=== PATIENT | female | born 1990 | race Caucasian/White ===

== ENCOUNTER 2017-05-22 09:38 | Observation (INO) | payer BC, OTHER ==
[2017-05-22] MEDS ORDERED: SODIUM CHLORIDE 0.9% 1,000 ML IV STA (10:36)
[2017-05-22] MEDS ORDERED: RX INFO: IV CONTRAST WAS GIVEN 1 EACH MISC MISCELLANE PRN (10:36)
--- NOTE | 2017-05-22 10:36 | ED ---
Abdominal Pain HPI - General Source: patient Mode of arrival: wheelchair Limitations: no limitations <Richie Hua - Last Filed: 05/22/17 11:43> <Omega Boss - Last Filed: 05/22/17 11:51> - General Chief Complaint: Abdominal Pain Stated Complaint: Abdominal pain lower right Time Seen by Provider: 05/22/17 10:09 - History of Present Illness Initial Comments: This is a 26-year-old female who presents with abdominal pain which began yesterday evening around 8 PM. The patient states the pain initially was localized to the umbilical region and she began vomiting shortly after the pain onset. The pain is now localized more on the right lower abdomen and it is constant. The patient has had a bowel movement with formed stool after the onset of pain. She states she is very uncomfortable but bending her knees helps minimize the pain. She denies blood in the urine and stool. (Richie Hua) - Related Data Home Medications Medication Instructions Recorded Confirmed Vestura 1 tab PO HS 06/02/14 05/22/17 Allergies Allergy/AdvReac Type Severity Reaction Status Date / Time No Known Allergies Allergy Verified 05/22/17 10:09 Review of Systems ROS Other: All systems not noted in ROS Statement are negative. <Richie Hua - Last Filed: 05/22/17 11:43> ROS Other: All systems not noted in ROS Statement are negative. <Omega Boss - Last Filed: 05/22/17 11:51> ROS Statement: Those systems with pertinent positive or pertinent negative responses have been documented in the HPI. Past Medical History Past Medical History: GI Bleed, Skin Disorder Additional Past Medical History / Comment(s): BLOOD IN STOOL. ATOPIC ECZEMA, UNDER CONTROL. History of Any Multi-Drug Resistant Organisms: None Reported Past Surgical History: No Surgical Hx Reported Additional Past Anesthesia/Blood Transfusion Reaction / Comment(s): NO PREV ANESTHESIA EXCEPT LOCAL, W/ NO PROB Smoking Status: Never smoker <Richie Hua - Last Filed: 05/22/17 11:43> General Exam Limitations: no limitations General appearance: alert, in no apparent distress Eye exam: Present: normal appearance, PERRL, EOMI. Absent: scleral icterus, conjunctival injection, periorbital swelling Respiratory exam: Present: normal lung sounds bilaterally. Absent: respiratory distress, wheezes, rales, rhonchi, stridor Cardiovascular Exam: Present: regular rate GI/Abdominal exam: Present: soft, tenderness, guarding, rebound, normal bowel sounds. Absent: organomegaly Neurological exam: Present: alert, oriented X3, CN II-XII intact Psychiatric exam: Present: normal affect, normal mood Skin exam: Present: warm, dry, intact, normal color. Absent: rash <Richie Hua - Last Filed: 05/22/17 11:43> Course <Richie Hua - Last Filed: 05/22/17 11:43> <Omega Boss - Last Filed: 05/22/17 11:51> Vital Signs 05/22/17 05/22/17 09:53 11:40 Temperature 97.9 F 98.8 F Pulse Rate 73 75 Respiratory 18 18 Rate Blood Pressure 120/64 112/58 O2 Sat by Pulse 98 100 Oximetry - Reevaluation(s) Reevaluation #1: 05/22/17 11:50 PA supervision: I did personally do a [id number] evaluation the patient. He does present with classic symptoms and signs of appendicitis. The exception of this is a fever or white count or absent. She has demonstrate right lower quadrant tenderness. Does demonstrate a Rovsing sign. CAT scan does show evidence of an inflamed appendix. I did discuss the case with Dr. Guardado. He will write initial orders. She is to remain nothing by mouth. (Omega Boss) Medical Decision Making - Lab Data Result diagrams: 05/22/17 10:04 05/22/17 10:04 <Richie Hua - Last Filed: 05/22/17 11:43> - Lab Data Result diagrams: 05/22/17 10:04 05/22/17 10:04 <Omega Boss - Last Filed: 05/22/17 11:51> - Lab Data Lab Results 05/22/17 05/22/17 05/22/17 Range/Units 10:04 10:04 10:04 WBC 7.7 (3.8-10.6) k/uL RBC 4.62 (3.80-5.40) m/uL Hgb 13.9 (11.4-16.0) gm/dL Hct 41.8 (34.0-46.0) % MCV 90.4 (80.0-100.0) fL MCH 30.1 (25.0-35.0) pg MCHC 33.3 (31.0-37.0) g/dL RDW 12.3 (11.5-15.5) % Plt Count 239 (150-450) k/uL Neutrophils % 69 % Lymphocytes % 22 % Monocytes % 7 % Eosinophils % 0 % Basophils % 0 % Neutrophils # 5.3 (1.3-7.7) k/uL Lymphocytes # 1.7 (1.0-4.8) k/uL Monocytes # 0.5 (0-1.0) k/uL Eosinophils # 0.0 (0-0.7) k/uL Basophils # 0.0 (0-0.2) k/uL Sodium 139 (137-145) mmol/L Potassium 4.3 (3.5-5.1) mmol/L Chloride 105 (98-107) mmol/L Carbon Dioxide 24 (22-30) mmol/L Anion Gap 10 mmol/L BUN 13 (7-17) mg/dL Creatinine 0.80 (0.52-1.04) mg/dL Est GFR (MDRD) Af Amer >60 (>60 ml/min/1.73 sqM) Est GFR (MDRD) Non-Af >60 (>60 ml/min/1.73 sqM) Glucose 90 (74-99) mg/dL Calcium 9.4 (8.4-10.2) mg/dL Total Bilirubin 0.6 (0.2-1.3) mg/dL AST 16 (14-36) U/L ALT 21 (9-52) U/L Alkaline Phosphatase 64 (38-126) U/L Total Protein 7.3 (6.3-8.2) g/dL Albumin 4.1 (3.5-5.0) g/dL Amylase 37 (30-110) U/L Lipase 61 (23-300) U/L Urine Color Yellow Urine Appearance Clear (Clear) Urine pH 6.5 (5.0-8.0) Ur Specific Leupp 1.013 (1.001-1.035) Urine Protein Negative (Negative) Urine Glucose (UA) Negative (Negative) Urine Ketones Negative (Negative) Urine Blood Small H (Negative) Urine Nitrite Negative (Negative) Urine Bilirubin Negative (Negative) Urine Urobilinogen <2.0 (<2.0) mg/dL Ur Leukocyte Esterase Negative (Negative) Urine RBC <1 (0-5) /hpf Urine WBC <1 (0-5) /hpf Ur Squamous Epith Cells 1 (0-4) /hpf Urine Bacteria Rare H (None) /hpf Urine Mucus Rare H (None) /hpf Urine HCG, Qual (Not Detectd) 05/22/17 Range/Units 10:04 WBC (3.8-10.6) k/uL RBC (3.80-5.40) m/uL Hgb (11.4-16.0) gm/dL Hct (34.0-46.0) % MCV (80.0-100.0) fL MCH (25.0-35.0) pg MCHC (31.0-37.0) g/dL RDW (11.5-15.5) % Plt Count (150-450) k/uL Neutrophils % % Lymphocytes % % Monocytes % % Eosinophils % % Basophils % % Neutrophils # (1.3-7.7) k/uL Lymphocytes # (1.0-4.8) k/uL Monocytes # (0-1.0) k/uL Eosinophils # (0-0.7) k/uL Basophils # (0-0.2) k/uL Sodium (137-145) mmol/L Potassium (3.5-5.1) mmol/L Chloride (98-107) mmol/L Carbon Dioxide (22-30) mmol/L Anion Gap mmol/L BUN (7-17) mg/dL Creatinine (0.52-1.04) mg/dL Est GFR (MDRD) Af Amer (>60 ml/min/1.73 sqM) Est GFR (MDRD) Non-Af (>60 ml/min/1.73 sqM) Glucose (74-99) mg/dL Calcium (8.4-10.2) mg/dL Total Bilirubin (0.2-1.3) mg/dL AST (14-36) U/L ALT (9-52) U/L Alkaline Phosphatase (38-126) U/L Total Protein (6.3-8.2) g/dL Albumin (3.5-5.0) g/dL Amylase (30-110) U/L Lipase (23-300) U/L Urine Color Urine Appearance (Clear) Urine pH (5.0-8.0) Ur Specific Leupp (1.001-1.035) Urine Protein (Negative) Urine Glucose (UA) (Negative) Urine Ketones (Negative) Urine Blood (Negative) Urine Nitrite (Negative) Urine Bilirubin (Negative) Urine Urobilinogen (<2.0) mg/dL Ur Leukocyte Esterase (Negative) Urine RBC (0-5) /hpf Urine WBC (0-5) /hpf Ur Squamous Epith Cells (0-4) /hpf Urine Bacteria (None) /hpf Urine Mucus (None) /hpf Urine HCG, Qual Not Detected (Not Detectd) Disposition <Richie Hua - Last Filed: 05/22/17 11:43> <Omega Boss - Last Filed: 05/22/17 11:51> Clinical Impression: Acute appendicitis Disposition: ADMITTED IP TO THIS [facility] Condition: Stable Referrals: None,Stated [Primary Care Provider] - 1-2 days
[2017-05-22 10:48] LABS: Basophils % (A) 0 %; Eosinophils % (A) 0 %; HCT 41.8 % (34.0-46.0); HGB 13.9 gm/dL (11.4-16.0); Lymphocytes # (A) 1.7 k/uL (1.0-4.8); Lymphocytes % (A) 22 %; MCH 30.1 pg (25.0-35.0); MCHC 33.3 g/dL (31.0-37.0); MCV 90.4 fL (80.0-100.0); Mean Platelet Volume 7.9; Monocytes # (A) 0.5 k/uL (0-1.0); Monocytes % (A) 7 %; Neutrophils # (A) 5.3 k/uL (1.3-7.7); Neutrophils % (A) 69 %; Platelet Count 239 k/uL (150-450); RBC 4.62 m/uL (3.80-5.40); RDW 12.3 % (11.5-15.5); WBC 7.7 k/uL (3.8-10.6)
[2017-05-22 10:52] LABS: Appearance,Urine Clear (Clear); Bacteria,Urine Rare /hpf; Bilirubin,Urine Negative (Negative); Blood,Urine Small (Negative); Color,Urine Yellow; Glucose,Urine (UA) Negative (Negative); Ketones,Urine Negative (Negative); Leukocyte Esterase,Urine Negative (Negative); Mucus,Urine Rare /hpf; Nitrite,Urine Negative (Negative); PH, Urine 6.5 (5.0-8.0); Protein,Urine Negative (Negative); RBC,Urine <1 /hpf (0-5); Specific Gravity,Urine 1.013 (1.001-1.035); Squamous Epithelial Cell,Urine 1 /hpf (0-4); Urobilinogen,Urine <2.0 mg/dL (<2.0); WBC,Urine <1 /hpf (0-5)
[2017-05-22 10:58] LABS: ALT 21 U/L (9-52); AST 16 U/L (14-36); Albumin 4.1 g/dL (3.5-5.0); Alkaline Phosphatase 64 U/L (38-126); Amylase 37 U/L (30-110); Anion Gap 10 mmol/L; Blood Urea Nitrogen 13 mg/dL (7-17); Calcium 9.4 mg/dL (8.4-10.2); Carbon Dioxide 24 mmol/L (22-30); Chloride 105 mmol/L (98-107); Glucose 90 mg/dL (74-99); Lipase 61 U/L (23-300); Potassium 4.3 mmol/L (3.5-5.1); Sodium 139 mmol/L (137-145); Total Bilirubin 0.6 mg/dL (0.2-1.3); Total Protein 7.3 g/dL (6.3-8.2)
--- NOTE | 2017-05-22 11:30 | CT ---
EXAMINATION TYPE: CT abdomen pelvis w con DATE OF EXAM: 05/22/2017 COMPARISON: NONE HISTORY: 26-year-old female RLQ pain TECHNIQUE: Contiguous axial scanning of the abdomen and pelvis following administration of 100 ml Omn ipaque 300 IV contrast. Delayed images through the kidneys and coronal/sagittal reconstructions perf ormed. CT DLP: 1377 mGycm Automated exposure control for dose reduction was used. FINDINGS: Heart normal size without pericardial effusion. Lung bases clear without pleural effusion. Liver enlarged measuring 20.2 cm craniocaudal. No focal liver lesion. Portal vein appears patent. No biliary ductal dilatation. Gallbladder, adrenal glands, kidneys, spleen with inferior splenule, and pancreas show no gross abnor mality. No dilated small bowel or free air. Appendix is identified in the right lower quadrant, axial image 7 2 and coronal image 51, increased in caliber at 1.2 cm with wall thickening and mild periappendiceal fat stranding. Adjacent mild free fluid tracking into the pelvis. Mild to moderate stool burden. No mesenteric or retroperitoneal lymphadenopathy. Arcuate configuration to the uterus. Ovaries are visualized. No pelvic lymphadenopathy seen. Bones: No osseous destructive process. IMPRESSION: 1. EXAM POSITIVE FOR ACUTE APPENDICITIS WITH MILD TO MODERATE INFLAMMATION. MILD REACTIVE FREE FLUID TRACKING INTO THE PELVIS. NO ABSCESS OR FREE AIR. 2. HEPATOMEGALY (20.2 CM).
[2017-05-22] MEDS ORDERED: PIPERACILLIN-TAZOBACTAM 3.375 GM in DEXTROSE/WATER 1 50ML.BAG IVPB STA (11:36)
[2017-05-22] MEDS ORDERED: ONDANSETRON 4 MG/2 ML VIAL IVP PRN ×2 (11:44→13:20)
[2017-05-22] MEDS ORDERED: SODIUM CHLORIDE 0.9% 1,000 ML IV SCH (11:45)
[2017-05-22] MEDS ORDERED: IV FLUID CONTINUATION 200 ML IV ONE (12:23)
--- NOTE | 2017-05-22 12:37 | P.GSHP ---
History of Present Illness H&P Date: 05/22/17 Chief Complaint: Right lower quadrant pain A 26-year-old female who presents to the emergency room with complaints of right lower quadrant pain. Patient states the pain was mainly periumbilical yesterday is now to the right of the umbilicus. Patient on CAT scan has findings of acute appendicitis. She's being admitted for laparoscopic appendectomy. Past Medical History Past Medical History: GI Bleed, Skin Disorder Additional Past Medical History / Comment(s): BLOOD IN STOOL. ATOPIC ECZEMA, UNDER CONTROL. History of Any Multi-Drug Resistant Organisms: None Reported Past Surgical History: No Surgical Hx Reported Additional Past Anesthesia/Blood Transfusion Reaction / Comment(s): NO PREV ANESTHESIA EXCEPT LOCAL, W/ NO PROB Smoking Status: Never smoker Medications and Allergies Home Medications Medication Instructions Recorded Confirmed Type Vestura 1 tab PO HS 06/02/14 05/22/17 History Allergies Allergy/AdvReac Type Severity Reaction Status Date / Time No Known Allergies Allergy Verified 05/22/17 10:09 Surgical - Exam Vital Signs Temp Pulse Resp BP Pulse Ox 97.9 F 73 18 120/64 98 05/22/17 09:53 05/22/17 09:53 05/22/17 09:53 05/22/17 09:53 05/22/17 09:53 - General well developed, no distress - Eyes PERRL - ENT normal pinna - Neck no masses - Respiratory normal expansion - Cardiovascular Rhythm: regular - Abdomen Marked right lower quadrant tenderness. Positive rebound tenderness. Abdomen: soft Results - Labs 05/22/17 10:04 05/22/17 10:04 Abnormal Lab Results - Last 24 Hours (Table) 05/22/17 Range/Units 10:04 Urine Blood Small H (Negative) Urine Bacteria Rare H (None) /hpf Urine Mucus Rare H (None) /hpf Diabetes panel 05/22/17 Range/Units 10:04 Sodium 139 (137-145) mmol/L Potassium 4.3 (3.5-5.1) mmol/L Chloride 105 (98-107) mmol/L Carbon Dioxide 24 (22-30) mmol/L BUN 13 (7-17) mg/dL Creatinine 0.80 (0.52-1.04) mg/dL Glucose 90 (74-99) mg/dL Calcium 9.4 (8.4-10.2) mg/dL AST 16 (14-36) U/L ALT 21 (9-52) U/L Alkaline Phosphatase 64 (38-126) U/L Total Protein 7.3 (6.3-8.2) g/dL Albumin 4.1 (3.5-5.0) g/dL Calcium panel 05/22/17 Range/Units 10:04 Calcium 9.4 (8.4-10.2) mg/dL Albumin 4.1 (3.5-5.0) g/dL Pituitary panel 05/22/17 Range/Units 10:04 Sodium 139 (137-145) mmol/L Potassium 4.3 (3.5-5.1) mmol/L Chloride 105 (98-107) mmol/L Carbon Dioxide 24 (22-30) mmol/L BUN 13 (7-17) mg/dL Creatinine 0.80 (0.52-1.04) mg/dL Glucose 90 (74-99) mg/dL Calcium 9.4 (8.4-10.2) mg/dL Adrenal panel 05/22/17 Range/Units 10:04 Sodium 139 (137-145) mmol/L Potassium 4.3 (3.5-5.1) mmol/L Chloride 105 (98-107) mmol/L Carbon Dioxide 24 (22-30) mmol/L BUN 13 (7-17) mg/dL Creatinine 0.80 (0.52-1.04) mg/dL Glucose 90 (74-99) mg/dL Calcium 9.4 (8.4-10.2) mg/dL Total Bilirubin 0.6 (0.2-1.3) mg/dL AST 16 (14-36) U/L ALT 21 (9-52) U/L Alkaline Phosphatase 64 (38-126) U/L Total Protein 7.3 (6.3-8.2) g/dL Albumin 4.1 (3.5-5.0) g/dL Assessment and Plan Assessment: Acute appendicitis. Patient will undergo laparoscopic appendectomy. I went over the risks and benefits of procedure including conversion to open procedure.
[2017-05-22] MEDS ORDERED: LACTATED RINGERS 1,000 ML IV ONE ×2 (12:44→13:20)
[2017-05-22] MEDS ORDERED: PROPOFOL 10 MG/ML 20 ML VIAL IV ONE (12:46)
[2017-05-22] MEDS ORDERED: MIDAZOLAM 2 MG/2 ML VIAL ONE (12:46)
[2017-05-22] MEDS ORDERED: ROCURONIUM BROMIDE 10 MG/ML 10 ML VIAL IV ONE (12:46)
[2017-05-22] MEDS ORDERED: NEOSTIGMINE 1 MG/ML 10 ML VIAL ONE (12:46)
[2017-05-22] MEDS ORDERED: LIDOCAINE 1% INJ 10MG/ML (20 ML MDV) ONE (12:46)
[2017-05-22] MEDS ORDERED: GLYCOPYRROLATE 0.2 MG/ML 2 ML VIAL ONE (12:46)
[2017-05-22] MEDS ORDERED: KETOROLAC 30 MG/ML 1 ML VIAL ONE (12:46)
[2017-05-22] MEDS ORDERED: SUCCINYLCHOLINE CHLORIDE 100 MG/5 ML SYR IV ONE (12:46)
[2017-05-22] MEDS ORDERED: fentaNYL (PF) 50 MCG/ML 2 ML AMP ONE (12:46)
[2017-05-22] MEDS ORDERED: BUPIVACAINE (PF) 0.25% 30 ML VIAL SQ ONE ×2 (12:52→13:05)
[2017-05-22] MEDS ORDERED: HYDROmorphone 0.5 MG/0.5 ML SYRINGE IVP PRN (13:20)
[2017-05-22] MEDS ORDERED: traMADol 50 MG TAB PO PRN (13:20)
[2017-05-22] MEDS ORDERED: NALOXONE 0.4 MG/ML 1 ML VIAL IV PRN (13:20)
[2017-05-22] MEDS ORDERED: HYDROcodone/APAP 5-325MG 1 EACH TAB PO PRN (13:20)
[2017-05-22] MEDS ORDERED: ACETAMINOPHEN TAB 325 MG TAB PO PRN (13:20)
--- NOTE | 2017-05-22 13:20 | P.OP ---
Date of Procedure: 05/22/17 Preoperative Diagnosis: Acute appendicitis Postoperative Diagnosis: Acute appendicitis Procedure(s) Performed: Laparoscopic appendectomy Anesthesia: UZMA Surgeon: Kevin Guardado Estimated Blood Loss (ml): 5 Pathology: other (Appendix) Condition: stable Disposition: PACU Description of Procedure: HarThe patient's placed on the operating table in the supine position. The patient received general anesthesia. The abdomen was prepped and draped in the usual sterile fashion. The skin was anesthetized 1% local Xylocaine at the trocar sites. Using an 11 blade the skin was incised at the umbilicus. The umbilicus was grasped with a Amboy clamp and then a Veress needle was placed into the peritoneal cavity. Position of the Veress needle was confirmed with positive drop test. After adequate insufflation a 5 mm trocar was placed into the peritoneal cavity. The abdomen was further insufflated. And then the laparoscope was placed in the peritoneal cavity. Next a 5 mm trocar was placed in the midline suprapubic position. And then a 10 mm trocar was placed in the midline epigastric position. The patient was rotated with the right side up and in Trendelenburg. The appendix was visualized. The appendix appeared to be inflamed. The appendix was grasped and then using the Harmonic scissors the mesoappendix was divided. A PDS Endoloop was then placed around the base of the appendix. And then the appendix was divided using Harmonic scissors. The appendix was placed into an Endo Catch and brought out through the 10 mm trocar site. The abdomen was irrigated. There is no bleeding seen. The trochars withdrawn. The skin was closed interrupted 3-0 Monocryl suture. Dermabond dressing was applied. Patient was sent to recovery room in stable condition.
[2017-05-22] MEDS: HYDROmorphone 2 MG/ML 1 ML SYRINGE IVP ONE ×2 (13:34→13:39)
[2017-05-22] MEDS ORDERED: diphenhydrAMINE 50 MG/ML 1 ML VIAL IVP ONE (13:39)
[2017-05-22] MEDS ORDERED: MIDAZOLAM 2 MG/2 ML VIAL IVP ONE (13:51)
[2017-05-22] MEDS ORDERED: MEPERIDINE 50 MG/ML SYRINGE IVP ONE (14:10)
[2017-05-22] MEDS: KETOROLAC 30 MG/ML 1 ML VIAL IVP SCH ×2 (15:24→20:13)
[2017-05-22] MEDS: DOCUSATE 100 MG CAP PO SCH (20:13)
[2017-05-23] MEDS: KETOROLAC 30 MG/ML 1 ML VIAL IVP SCH ×2 (01:16→08:24)
[2017-05-23] MEDS: DOCUSATE 100 MG CAP PO SCH (08:23)
[2017-05-23 08:32] VITALS: BP 101/66; PULSE 63; RESP 20; TEMP 98
[2017-05-23] MEDS ORDERED: ENOXAPARIN 40 MG/0.4 ML SYRINGE SQ SCH (09:00)
--- NOTE | 2017-05-23 11:13 | P.DS ---
Providers Date of admission: 05/22/17 11:50 Expected date of discharge: 05/23/17 Attending physician: Kevin Guardado Primary care physician: Stated None Hospital Course: 26-year-old female presented on the day of admission to the emergency room with chief complaint of developing right lower quadrant pain. Patient stated the pain the day before was mainly in the right of the umbilicus. Patient presented to the emergency room CAT scan showed findings of an acute appendicitis. Patient was admitted to the services of the attending and did undergo a lap appendectomy appendectomy on the 22 of May. Postop no events. Patient was up ambulating in the rios passing gas tolerating a diet surgical sites benign no redness afebrile was felt to be appropriate to be discharged home Impression discharge diagnosis Present on admission right lower quadrant pain suspect due to an acute appendicitis Status post May 22 laparoscopic appendectomy for acute appendicitis The above impression and plan of care have been discussed and directed by signing physician. Tamika Bueno nurse practitioner acting as scribe for signing physician. Patient Condition at Discharge: Stable Plan - Discharge Summary Discharge Rx Participant: No New Discharge Prescriptions: New traMADol HCl [Ultram] 50 mg PO Q6H PRN #30 tab PRN Reason: Mild To Moderate Pain Continue Vestura 1 tab PO HS Discharge Medication List Vestura 1 tab PO HS 06/02/14 [History] traMADol HCl [Ultram] 50 mg PO Q6H PRN #30 tab 05/23/17 [Rx] Follow up Appointment(s)/Referral(s): None,Stated [Primary Care Provider] - 1-2 days (05-30-17 AT 2:45PM) Kevin Guardado MD [STAFF PHYSICIAN] - 1 Week Patient Instructions/Handouts: Laparoscopic Appendectomy (DC) Activity/Diet/Wound Care/Special Instructions: No tub bath for six weeks. Shower daily. No lifting over 4 pounds for the next 6 weeks. May return to work after seen in the follow-up surgical visit May use ice packs to surgical site. No driving while taking narcotic for pain. Discharge Disposition: HOME SELF-CARE
== END 2017-05-23 11:37 | disposition home or self-care (01) ==
LOC: EC 09:38 → 6PED 11:50
PROVIDERS: ADMIT Surgery; ATTEND Surgery
DX: K35.80 Unspecified acute appendicitis (principal); Z79.3 Long term (current) use of hormonal contraceptives; Z87.19 Personal history of other diseases of the digestive system; Z87.2 Personal history of diseases of the skin and subcutaneous tissue
CPT/HCPCS: 44970; 99285 ×2; 96360 ×2; 36415; 81025 ×2; 88304; 80053; 82150; 83690; 85025; 81001; 74177; G0378 ×2; J2250; J1170; J1200; J2710; J2175; J2001; J1650; J3010; J1885 ×2; J2543; Q9967; J0330; J2704

== ENCOUNTER 2020-01-12 08:09 | Emergency (ER) | payer OTHER ==
[2020-01-12 08:15] VITALS: BP 115/79; PULSE 72; RESP 18; TEMP 98.7
[2020-01-12] MEDS ORDERED: PROPARACAINE 0.5% OPHTH DROPS 15 ML BTL RIGHT EYE STA (08:16)
[2020-01-12] MEDS ORDERED: FLUORESCEIN STRIPS 1 MG STRIP RIGHT EYE ONE (08:16)
--- NOTE | 2020-01-12 08:38 | ED ---
Eye Problem HPI - General Chief complaint: Eye Problems Stated complaint: Eye injury Time Seen by Provider: 01/12/20 08:15 Source: patient Mode of arrival: ambulatory Limitations: no limitations - History of Present Illness Initial comments: Patient is a 29-year-old female presenting to the emergency Department with complaints of right eye irritation that started yesterday. Patient states she was riding in a [id number] and thought something had hit her right eye. She states she does wear contacts. She states she did flush her eye out yesterday and she was unable to find anything MRI, she took her contacts out and when she woke up this morning her eye was more irritated and red. She denies any changes in her vision other than not being with her wear contacts. She denies any dizziness, severe eye pain. She denies any recent fever or chills. She has no further complaints. She is up-to-date with her tetanus. She is not this time. - Related Data Home Medications Medication Instructions Recorded Confirmed Vestura 1 tab PO HS 06/02/14 05/22/17 Previous Rx's Medication Instructions Recorded traMADol HCl [Ultram] 50 mg PO Q6H PRN #30 tab 05/23/17 Levofloxacin 0.5% Ophth Soln 2 drop RIGHT EYE Q4-6H 7 Days #1 01/12/20 [Quixin Ophth Soln] bottle Allergies Allergy/AdvReac Type Severity Reaction Status Date / Time No Known Allergies Allergy Verified 05/22/17 15:28 Review of Systems ROS Statement: Those systems with pertinent positive or pertinent negative responses have been documented in the HPI. ROS Other: All systems not noted in ROS Statement are negative. Past Medical History Past Medical History: GI Bleed, Skin Disorder Additional Past Medical History / Comment(s): BLOOD IN STOOL two years ago. ATOPIC ECZEMA, UNDER CONTROL. History of Any Multi-Drug Resistant Organisms: None Reported Past Surgical History: Appendectomy Additional Past Anesthesia/Blood Transfusion Reaction / Comment(s): NO PREV ANESTHESIA EXCEPT LOCAL, W/ NO PROB Past Psychological History: No Psychological Hx Reported Smoking Status: Never smoker Past Alcohol Use History: Occasional Past Drug Use History: Marijuana - Past Family History Mother Family Medical History: Deep Vein Thrombosis (DVT) Additional Family Medical History / Comment(s): Lupus, diverticulitis General Exam - General Exam Comments Initial Comments: GENERAL: Patient is well-developed and well-nourished. Patient is nontoxic and in no acute distress. HEAD: Atraumatic, normocephalic. EYES: Pupils equal round and reactive to light, extraocular movements intact, sclera anicteric. Right conjunctiva injected, with fluorescein stain, there is a corneal abrasion near the 9 to 10 o'clock position that is round in nature consistent with her contact lens. Eyelids were unremarkable. ENT: TMs normal, nares patent, oropharynx clear without exudates. Moist mucous membranes. NECK: Normal range of motion, supple without lymphadenopathy or JVD. LUNGS: Unlabored respirations. Breath sounds clear to auscultation bilaterally and equal. No wheezes rales or rhonchi. HEART: Regular rate and rhythm without murmurs, rubs or gallops. ABDOMEN: Soft, nontender, normoactive bowel sounds. No guarding, no rebound. No masses appreciated. : Deferred MUSCULOSKELETAL: Normal extremities with adequate strength and normal range of motion, no pitting or edema. No clubbing or cyanosis. NEUROLOGICAL: Patient is alert and oriented x 3. Motor and sensory are also intact. Normal speech, normal gait. PSYCH: Normal mood, normal affect. SKIN: Warm, Dry, normal turgor, no rashes or lesions noted. Limitations: no limitations Course Vital Signs 01/12/20 08:11 Temperature 98.7 F Pulse Rate 72 Respiratory 18 Rate Blood Pressure 115/79 O2 Sat by Pulse 100 Oximetry Medical Decision Making - Medical Decision Making Patient is a 29-year-old female presenting with a corneal abrasion to the right eye near the 9 to 10 o'clock position. She does wear contact lens. She is up-to-date with her tetanus. I will start patient on levofloxacin eyedrops. She can follow up with her eye doctor as well. She is in agreement with this plan of care and she is stable for discharge. Return parameters were discussed with the patient she verbalized understanding. Case discussed with Dr. Plata. Disposition Clinical Impression: Corneal abrasion of right eye due to contact lens Disposition: HOME SELF-CARE Condition: Stable Instructions (If sedation given, give patient instructions): Corneal Abrasion (ED) Additional Instructions: Please return to the Emergency Department if symptoms worsen or any other concerns. Use antibiotic eyedrops as prescribed. Follow-up with eye doctor if symptoms persist. Prescriptions: Levofloxacin 0.5% Ophth Soln [Quixin Ophth Soln] 2 drop RIGHT EYE Q4-6H 7 Days #1 bottle Is patient prescribed a controlled substance at d/c from ED?: No Referrals: None,Stated [Primary Care Provider] - 1-2 days
== END 2020-01-12 08:48 | disposition home or self-care (01) ==
LOC: EC 08:09
DX: H18.821 Corneal disorder due to contact lens, right eye (principal); Z79.3 Long term (current) use of hormonal contraceptives
CPT/HCPCS: 99283

== ENCOUNTER 2022-04-07 10:28 | Emergency (ER) | payer OTHER ==
[2022-04-07 10:51] VITALS: RESP 18; TEMP 98.4
[2022-04-07 11:18] LABS: Appearance,Urine Clear (Clear); Bilirubin,Urine Negative (Negative); Blood,Urine Negative (Negative); Color,Urine Yellow; Glucose,Urine (UA) Negative (Negative); Ketones,Urine 1+ (Negative); Leukocyte Esterase,Urine Negative (Negative); Nitrite,Urine Negative (Negative); Protein,Urine Trace (Negative)
[2022-04-07] MEDS ORDERED: SODIUM CHLORIDE 0.9% 1,000 ML IV STA (13:19)
--- NOTE | 2022-04-07 13:19 | ED ---
Abdominal Pain HPI - General Chief Complaint: Abdominal Pain Stated Complaint: abd pain Source: patient, RN notes reviewed Mode of arrival: ambulatory Limitations: no limitations - History of Present Illness Initial Comments: Patient is a pleasant 31-year-old female presenting to the emergency room with complaints of abdominal pain along with some lower back pain. She states that the symptoms have been ongoing for approximately 10 days. She was seen in urgent care earlier this morning and they completed an x-ray but not advise her of anything other than constipation. She is concerned regarding her symptoms and lack of bowel movement since March 28. No laboratory studies or urinalysis was completed by urgent care. She reports some nausea with her symptoms but no vomiting. Any other associated complaints including any chest pain, shortness of breath, unintentional weight changes, inability to take food/fluids, fevers or chills. She does have a history of GI bleed but denies any blood in her stool prior to her recent lack of bowel movement or any anal mucus drainage. With the exception of eczema she has no other significant past medical history. - Related Data Home Medications Medication Instructions Recorded Confirmed Hydrocortisone Cream 1 applic TOPICAL DAILY 04/07/22 04/07/22 [Hydrocortisone 2.5% Cream] Ibuprofen [Motrin] 400 mg PO Q4H PRN 04/07/22 04/07/22 Oxymetazoline HCl [Rhofade] 1 applic TOPICAL DAILY 04/07/22 04/07/22 metroNIDAZOLE [metroNIDAZOLE 0.75% 1 applic TOPICAL DAILY 04/07/22 04/07/22 Gel] Previous Rx's Medication Instructions Recorded Docusate [Colace] 100 mg PO DAILY PRN 30 Days #30 04/07/22 capsule Vit No.179/Iron/Folic 1 each PO DAILY 30 Days #30 tab 04/07/22 [ Tablet] Allergies Allergy/AdvReac Type Severity Reaction Status Date / Time No Known Allergies Allergy Verified 04/07/22 15:30 Review of Systems ROS Statement: Those systems with pertinent positive or pertinent negative responses have been documented in the HPI. ROS Other: All systems not noted in ROS Statement are negative. Past Medical History Past Medical History: GI Bleed, Skin Disorder Additional Past Medical History / Comment(s): BLOOD IN STOOL two years ago. ATOPIC ECZEMA, UNDER CONTROL. History of Any Multi-Drug Resistant Organisms: None Reported Past Surgical History: Appendectomy Additional Past Anesthesia/Blood Transfusion Reaction / Comment(s): NO PREV ANESTHESIA EXCEPT LOCAL, W/ NO PROB Past Psychological History: No Psychological Hx Reported Smoking Status: Never smoker Past Alcohol Use History: Occasional Past Drug Use History: Marijuana - Past Family History Mother Family Medical History: Deep Vein Thrombosis (DVT) Additional Family Medical History / Comment(s): Lupus, diverticulitis General Exam Limitations: no limitations General appearance: alert, in no apparent distress Head exam: Present: atraumatic, normocephalic, normal inspection Eye exam: Present: normal appearance, PERRL, EOMI. Absent: scleral icterus, conjunctival injection, periorbital swelling ENT exam: Present: normal exam, mucous membranes moist Neck exam: Present: normal inspection, full ROM Respiratory exam: Present: normal lung sounds bilaterally. Absent: respiratory distress, wheezes, rales, rhonchi, stridor Cardiovascular Exam: Present: regular rate, normal rhythm, normal heart sounds. Absent: systolic murmur, diastolic murmur, rubs, gallop, clicks GI/Abdominal exam: Present: soft, normal bowel sounds. Absent: distended, tenderness, guarding, rebound, rigid Rectal exam: Present: deferred Extremities exam: Present: normal inspection. Absent: pedal edema, joint swelling Back exam: Present: normal inspection. Absent: CVA tenderness (R), CVA tenderness (L) Neurological exam: Present: alert, oriented X3, CN II-XII intact Psychiatric exam: Present: normal affect, normal mood Skin exam: Present: warm, dry, intact, normal color. Absent: rash Course Vital Signs 04/07/22 04/07/22 10:48 15:58 Temperature 98.4 F Pulse Rate 62 78 Respiratory 18 18 Rate Blood Pressure 108/71 110/64 O2 Sat by Pulse 100 99 Oximetry Medical Decision Making - Medical Decision Making 31-year-old female presenting to the emergency room with complaints of abdominal pain and lower back pain ongoing for approximately 10 days with lack of bowel movement. X-ray completed by urgent care earlier today but unavailable. Urinalysis along with urine hCG completed by triage. Urinalysis with trace protein and +1 ketones otherwise negative. Urine hCG Qual was positive for . Patient reports that she has had multiple miscarriages in the past and was not actively trying to get or actually tried to progress with her spouse. Given results of positive urine hCG with back pain an d abdominal pain will proceed with workup for potential miscarriage in the setting of lower back pain. Will obtain CBC, BMP urine quadrant along with Rh typing and OB ultrasound. Will give IV hydration of 1 L IV fluids. CBC and BMP without significant abnormalities. HCG Quant 98,205.9. Blood type B positive. OB ultrasound reveals a viable intrauterine at approximately 6 weeks gestation with a due date of 11/17/2022. Results discussed with patient and spouse at bedside. Advised addition of Colace to help with constipation and good hydration will start on vitamins. Encouraged establishing with [facility] [employer] regarding current . precautions including fluids and medications to avoid discussed. Questions and concerns answered. Will discharge patient home in stable condition with follow- up with OB and her primary care provider. Case discussed with Dr. Lacey. - Lab Data Result diagrams: 04/07/22 13:37 04/07/22 13:37 Lab Results 04/07/22 04/07/22 04/07/22 Range/Units 10:57 10:57 13:37 WBC 6.6 (3.8-10.6) k/uL RBC 4.28 (3.80-5.40) m/uL Hgb 13.2 (11.4-16.0) gm/dL Hct 38.9 (34.0-46.0) % MCV 90.8 (80.0-100.0) fL MCH 30.9 (25.0-35.0) pg MCHC 34.1 (31.0-37.0) g/dL RDW 11.4 L (11.5-15.5) % Plt Count 191 (150-450) k/uL MPV 9.6 Neutrophils % 60 % Lymphocytes % 32 % Monocytes % 6 % Eosinophils % 1 % Basophils % 1 % Neutrophils # 4.0 (1.3-7.7) k/uL Lymphocytes # 2.1 (1.0-4.8) k/uL Monocytes # 0.4 (0-1.0) k/uL Eosinophils # 0.0 (0-0.7) k/uL Basophils # 0.0 (0-0.2) k/uL Sodium (137-145) mmol/L Potassium (3.5-5.1) mmol/L Chloride (98-107) mmol/L Carbon Dioxide (22-30) mmol/L Anion Gap mmol/L BUN (7-17) mg/dL Creatinine (0.52-1.04) mg/dL Est GFR (CKD-EPI)AfAm (>60 ml/min/1.73 sqM) Est GFR (CKD-EPI)NonAf (>60 ml/min/1.73 sqM) Glucose (74-99) mg/dL Calcium (8.4-10.2) mg/dL HCG, Quant mIU/mL Urine Color Yellow Urine Appearance Clear (Clear) Urine pH 7.0 (5.0-8.0) Ur Specific [place] 1.020 (1.001-1.035) Urine Protein Trace H (Negative) Urine Glucose (UA) Negative (Negative) Urine Ketones 1+ H (Negative) Urine Blood Negative (Negative) Urine Nitrite Negative (Negative) Urine Bilirubin Negative (Negative) Urine Urobilinogen 6.0 (<2.0) mg/dL Ur Leukocyte Esterase Negative (Negative) Urine HCG, Qual Detected (Not Detectd) Blood Type Blood Type Recheck Bld Type Recheck Status 04/07/22 04/07/22 Range/Units 13:37 14:50 WBC (3.8-10.6) k/uL RBC (3.80-5.40) m/uL Hgb (11.4-16.0) gm/dL Hct (34.0-46.0) % MCV (80.0-100.0) fL MCH (25.0-35.0) pg MCHC (31.0-37.0) g/dL RDW (11.5-15.5) % Plt Count (150-450) k/uL MPV Neutrophils % % Lymphocytes % % Monocytes % % Eosinophils % % Basophils % % Neutrophils # (1.3-7.7) k/uL Lymphocytes # (1.0-4.8) k/uL Monocytes # (0-1.0) k/uL Eosinophils # (0-0.7) k/uL Basophils # (0-0.2) k/uL Sodium 138 (137-145) mmol/L Potassium 3.9 (3.5-5.1) mmol/L Chloride 104 (98-107) mmol/L Carbon Dioxide 24 (22-30) mmol/L Anion Gap 10 mmol/L BUN 6 L (7-17) mg/dL Creatinine 0.61 (0.52-1.04) mg/dL Est GFR (CKD-EPI)AfAm >90 (>60 ml/min/1.73 sqM) Est GFR (CKD-EPI)NonAf >90 (>60 ml/min/1.73 sqM) Glucose 88 (74-99) mg/dL Calcium 9.2 (8.4-10.2) mg/dL HCG, Quant 59187.9 mIU/mL Urine Color Urine Appearance (Clear) Urine pH (5.0-8.0) Ur Specific [place] (1.001-1.035) Urine Protein (Negative) Urine Glucose (UA) (Negative) Urine Ketones (Negative) Urine Blood (Negative) Urine Nitrite (Negative) Urine Bilirubin (Negative) Urine Urobilinogen (<2.0) mg/dL Ur Leukocyte Esterase (Negative) Urine HCG, Qual (Not Detectd) Blood Type B Positive Blood Type Recheck No Previous Record Bld Type Recheck Status ABR ONLY - Radiology Data Radiology results: report reviewed, image reviewed Disposition Clinical Impression: , Constipation Disposition: HOME SELF-CARE Condition: Good Instructions (If sedation given, give patient instructions): Nausea and Vomit ing in (ED), (ED) Additional Instructions: Please take vitamin as prescribed. Please maintain good oral hydration. Please utilize Colace as needed for constipation. Please contact your already established [facility] [facility] to schedule an appointment for your . Current estimated due date from ultrasound today is 11/17/2022. Please return to the Emergency Department if symptoms worsen or any other concerns. Prescriptions: Docusate [Colace] 100 mg PO DAILY PRN 30 Days #30 capsule PRN Reason: Constipation Vit No.179/Iron/Folic [ Tablet] 1 each PO DAILY 30 Days #30 tab Is patient prescribed a controlled substance at d/c from ED?: No Referrals: None,Stated [Primary Care Provider] - 1-2 days Asuncion Palma DO [Doctor of Osteopathic Medicine] - As Soon As Possible ((established AR MANAGER)) Time of Disposition: 15:51
[2022-04-07 13:42] LABS: Basophils % (A) 1 %; Eosinophils % (A) 1 %; HCT 38.9 % (34.0-46.0); HGB 13.2 gm/dL (11.4-16.0); Lymphocytes # (A) 2.1 k/uL (1.0-4.8); Lymphocytes % (A) 32 %; MCH 30.9 pg (25.0-35.0); MCHC 34.1 g/dL (31.0-37.0); MCV 90.8 fL (80.0-100.0); Mean Platelet Volume 9.6; Monocytes # (A) 0.4 k/uL (0-1.0); Monocytes % (A) 6 %; Neutrophils % (A) 60 %; Platelet Count 191 k/uL (150-450); RBC 4.28 m/uL (3.80-5.40); RDW 11.4 % (11.5-15.5); WBC 6.6 k/uL (3.8-10.6)
[2022-04-07 13:54] LABS: African American GFR (CKD) >90 (>60 ml/min/1.73 sqM); Anion Gap 10 mmol/L; Blood Urea Nitrogen 6 mg/dL (7-17); Calcium 9.2 mg/dL (8.4-10.2); Carbon Dioxide 24 mmol/L (22-30); Chloride 104 mmol/L (98-107); Glucose 88 mg/dL (74-99); Non-African American GFR(CKD) >90 (>60 ml/min/1.73 sqM); Potassium 3.9 mmol/L (3.5-5.1); Sodium 138 mmol/L (137-145)
[2022-04-07 14:43] LABS: HCG,Quantitative Serum 98205.9 mIU/mL
--- NOTE | 2022-04-07 15:32 | US ---
EXAMINATION TYPE: Ultrasound OB <= 14 week fetus DATE OF EXAM: 04/07/2022 3:08 PM COMPARISON: NONE CLINICAL HISTORY: 31-year-old female abdominal/back pain. Generalized pain. N/V. EXAM PERFORMED: Transabdominal (TA) FINDINGS: EXAM MEASUREMENTS: GESTATIONAL AGE / DATING Physician Established: Not yet established Dates by LMP: (3 weeks/5 days) EDC: 12/17/2022 Dates by First Scan: No previous this is first scan Dates by Current Scan for: ( 8 weeks/0 days) EDC: 11/17/2022 MATERNAL ANATOMY Uterus: 10.2 x 6.8 x 5.1 cm Right Ovary: 2.0 x 1.3 x 1.5 cm Left Ovary: 3.7 x 2.8 x 2.0 cm Post CDS / Adnexa: no free fluid Presence of free fluid: no Presence of corpus luteal cyst: left ovary = 2.6 x 1.3 x 1.4 cm GESTATION / SURVEY CRL: 1.6 cm (8 weeks/0 days) MSD: seen, not measured Yolk Sac (normal less than 6mm): 2.6 mm Heart Rate: 161 bpm Rhythm: Normal IUP: Viable IUP Date of LMP: 03/12/2022, Beta HcG (if available): 98,205 Trapeze Artist notes: GS, YS and CRL visualized. Hypoechoic area visualized mid uterus posteriorly = 1. 6 x 1.7 x 1.2 cm IMPRESSION: 1. Single live intrauterine with estimated gestational age of 8 weeks 0 days by crown-rump length (frankly discordant with dates based on LMP; correlate as to accuracy of recall of LMP). 2. A 1.7 cm hypoechoic area posteriorly in the uterus could represent a perigestational bleed. Consid er short interval follow-up to reassess. 3. Otherwise, complete survey recommended at 18-20 weeks.
[2022-04-07 15:58] VITALS: BP 110/64; PULSE 78
== END 2022-04-07 16:05 | disposition home or self-care (01) ==
LOC: EC 10:28
DX: O99.611 Diseases of the digestive system complicating pregnancy, first trimester (principal); K59.00 Constipation, unspecified; O99.321 Drug use complicating pregnancy, first trimester; F19.90 Other psychoactive substance use, unspecified, uncomplicated; Z3A.08 8 weeks gestation of pregnancy
CPT/HCPCS: 36415; 76801; 80048; 81003; 81025; 84702; 85025; 86900; 86901; 96360; 99284

== ENCOUNTER 2024-04-12 06:00 | Inpatient (IN) | payer OTHER ==
[2024-04-12] MEDS ORDERED: TERBUTALINE 1 MG/ML VIAL SQ PRN (06:33)
[2024-04-12] MEDS ORDERED: miSOPROStoL 200 MCG TAB PO PRN (06:33)
[2024-04-12] MEDS ORDERED: CARBOPROST TROMETHAMINE 250 MCG/ML 1 ML AMP IM PRN (06:33)
[2024-04-12] MEDS ORDERED: miSOPROStoL 200 MCG TAB RECTAL PRN (06:33)
[2024-04-12] MEDS ORDERED: METHYLERGONOVINE 0.2 MG/ML 1 ML AMP IM PRN (06:33)
[2024-04-12] MEDS ORDERED: TRANEXAMIC 1,000 MG/100ML-NACL 1,000 MG in EMPTY BAG 1 BAG IV PRN (06:33)
[2024-04-12] MEDS ORDERED: OXYTOCIN 10 UNIT/ML 1 ML VIAL IM PRN (06:33)
[2024-04-12] MEDS: LACTATED RINGERS 1,000 ML IV SCH (06:35)
[2024-04-12 06:44] VITALS: RESP 16
[2024-04-12] MEDS: OXYTOCIN 30 UNITS/500 ML NS 30 UNIT in SALINE 1 500ML.BAG IV SCH (06:52)
[2024-04-12 06:55] LABS: Basophils % (A) 0 %; Eosinophils # (A) 0.1 k/uL (0-0.7); Eosinophils % (A) 1 %; HCT 35.7 % (34.0-46.0); HGB 11.9 gm/dL (11.4-16.0); Lymphocytes # (A) 2.9 k/uL (1.0-4.8); Lymphocytes % (A) 33 %; MCH 30.9 pg (25.0-35.0); MCHC 33.2 g/dL (31.0-37.0); MCV 93.1 fL (80.0-100.0); Mean Platelet Volume 8.7; Monocytes # (A) 0.4 k/uL (0-1.0); Monocytes % (A) 5 %; Neutrophils % (A) 58 %; Platelet Count 193 k/uL (150-450); RBC 3.84 m/uL (3.80-5.40); RDW 12.4 % (11.5-15.5); WBC 8.6 k/uL (3.8-10.6)
--- NOTE | 2024-04-12 07:52 | P.HPOB ---
History of Present Illness H&P Date: 04/12/24 Chief Complaint: induction of labor 33 year old presents at 40 weeks 3 days presents for induction of labor. Her cervix is 1/60/-3. She is not isadora. heart tones 135 with moderate variability and reactive. Review of Systems All systems: negative Constitutional: Denies chills, Denies fever Eyes: denies blurred vision, denies pain Ears, nose, mouth and throat: Denies headache, Denies sore throat Cardiovascular: Denies chest pain, Denies shortness of breath Respiratory: Denies cough Gastrointestinal: Denies abdominal pain, Denies diarrhea, Denies nausea, Denies vomiting Genitourinary: Denies dysuria, Denies hematuria Musculoskeletal: Denies myalgias Integumentary: Denies pruritus, Denies rash Neurological: Denies numbness, Denies weakness Psychiatric: Denies anxiety, Denies depression Endocrine: Denies fatigue, Denies weight change Past Medical History Past Medical History: GI Bleed, Skin Disorder Additional Past Medical History / Comment(s): BLOOD IN STOOL two years ago. ATOPIC ECZEMA, UNDER CONTROL. History of Any Multi-Drug Resistant Organisms: None Reported Past Surgical History: Appendectomy Past Anesthesia/Blood Transfusion Reactions: No Reported Reaction Additional Past Anesthesia/Blood Transfusion Reaction / Comment(s): NO PREV ANESTHESIA EXCEPT LOCAL, W/ NO PROB Past Psychological History: No Psychological Hx Reported Smoking Status: Never smoker Past Alcohol Use History: None Reported Past Drug Use History: None Reported - Past Family History Mother Family Medical History: Deep Vein Thrombosis (DVT) Additional Family Medical History / Comment(s): Lupus, diverticulitis Medications and Allergies Home Medications Medication Instructions Recorded Confirmed Type Vit No.179/Iron/Folic 1 each PO DAILY 30 Days #30 tab 04/07/22 11/16/22 Rx [ Tablet] Doxylamine Succinate [Unisom] 25 mg PO 04/12/24 History Allergies Allergy/AdvReac Type Severity Reaction Status Date / Time No Known Allergies Allergy Verified 04/12/24 06:31 Exam Osteopathic Statement: *. No significant issues noted on an osteopathic structural exam other than those noted in the History and Physical/Consult. Vital Signs Temp Pulse Resp BP Pulse Ox 04/12/24 06:31 97.4 F L 75 16 114/59 98 Intake and Output 12/04/2304/12/24 04/12/24 22:59 06:59 14:59 Other: Weight 117.934 kg HEart: RRR Lungs: CTAB Abdomen: soft, nontender Extremeties: neg william's Results Result Diagrams: 04/12/24 06:30 Assessment and Plan (1) 40 weeks gestation of Current Visit: No Status: Acute Code(s): Z3A.40 - 40 WEEKS GESTATION OF SNOMED Code(s): 65561585 (2) Encounter for induction of labor Current Visit: Yes Status: Acute Code(s): Z34.90 - ENCNTR FOR SUPRVSN OF NORMAL , UNSP, UNSP TRIMESTER SNOMED Code(s): 035013410 Plan: 1. induction of labor with amniotomy and pitocin 2. anticipate normal vaginal delivery
[2024-04-12] MEDS: NALBUPHINE 10 MG/ML (10 ML MDV) IV PRN (11:22)
[2024-04-12] MEDS: LIDOCAINE 0.5% (PF) 5 MG/ML (50 ML SDV) SQ PRN (16:35)
[2024-04-12] MEDS ORDERED: diphenhydrAMINE 25 MG CAP PO PRN (17:13)
[2024-04-12] MEDS ORDERED: BENZOCAINE/MENTHOL SPRAY 1 GM/SPRAY AEROSOL TOPICAL PRN (17:13)
[2024-04-12] MEDS ORDERED: LANOLIN CREAM 1 GM TUBE TOPICAL PRN (17:13)
[2024-04-12] MEDS ORDERED: SIMETHICONE 80 MG CHEWABLE PO PRN (17:13)
[2024-04-12] MEDS ORDERED: ZOLPIDEM 5 MG TAB PO PRN (17:13)
[2024-04-12] MEDS ORDERED: diphenhydrAMINE 50 MG CAP PO PRN (17:13)
[2024-04-12] MEDS ORDERED: HYDROCORTISONE 2.5% RECTAL CREAM 30 GM TUBE RECTAL PRN (17:13)
[2024-04-12] MEDS ORDERED: diphenhydrAMINE 50 MG/ML 1 ML VIAL IVP PRN ×2 (17:13)
[2024-04-12] MEDS ORDERED: OXYTOCIN 30 UNITS/500 ML NS 30 UNIT in SALINE 1 500ML.BAG IV SCH (17:15)
[2024-04-12] MEDS: SENNOSIDES-DOCUSATE SODIUM 1 EACH TAB PO SCH (19:57)
[2024-04-12] MEDS ORDERED: IBUPROFEN 800 MG TAB PO SCH (22:00)
[2024-04-13] MEDS: ACETAMINOPHEN TAB 500 MG TAB PO SCH (00:18)
[2024-04-13 06:20] LABS: Basophils % (A) 0 %; Eosinophils # (A) 0.1 k/uL (0-0.7); Eosinophils % (A) 1 %; HCT 34.1 % (34.0-46.0); HGB 11.2 gm/dL (11.4-16.0); Lymphocytes # (A) 2.7 k/uL (1.0-4.8); Lymphocytes % (A) 23 %; MCH 30.4 pg (25.0-35.0); MCHC 32.9 g/dL (31.0-37.0); MCV 92.4 fL (80.0-100.0); Mean Platelet Volume 9.3; Monocytes # (A) 0.7 k/uL (0-1.0); Monocytes % (A) 6 %; Neutrophils # (A) 8.2 k/uL (1.3-7.7); Neutrophils % (A) 69 %; Platelet Count 178 k/uL (150-450); RBC 3.69 m/uL (3.80-5.40); RDW 12.8 % (11.5-15.5); WBC 11.8 k/uL (3.8-10.6)
--- NOTE | 2024-04-13 09:30 | P.PROBDLV ---
Vaginal Delivery Note - . Vaginal Delivery Note: 33 year old presents at 40 weeks 3 days presents for induction of labor. Her cervix is 1/60/-3. She is not isadora. heart tones 135 with moderate variability and reactive. Amniotomy was performed at 7:40 AM, clear fluid noted. Pitocin was also started. Patient progressed slowly and did get a couple doses of Nubain.. She was very uncomfortable around 2 PM she got an epidural and was 4 cm at that time. She quickly progressed to complete after this at 1630. She pushed, and delivered a viable female over intact perineum under epidural anesthesia. I was not present for delivery as she went from 4 to complete quite quickly and had a precipitous delivery. Placenta delivered soon after at 1637. Vagina, cervix, perineum d I did inspect and there was a first-degree midline laceration repaired with 3-0 Vicryl. Estimated blood loss 100 mL. Apgars of the baby 8, 9, weight 8 lbs. 8 oz.
--- NOTE | 2024-04-13 09:32 | P.DS ---
Providers Date of admission: 04/12/24 06:10 Expected date of discharge: 04/13/24 Attending physician: Asuncion Palma Primary care physician: Stated None - Discharge Diagnosis(es) (1) 40 weeks gestation of Current Visit: No Status: Resolved (2) Encounter for induction of labor Current Visit: Yes Status: Resolved (3) Status post normal vaginal delivery Current Visit: Yes Status: Acute Hospital Course: Patient presented for induction of labor. She underwent a normal vaginal delivery. course was uneventful. She denies nausea, vomiting, chest pain, shortness of breath or calf pain. Patient was discharged home day #1 in stable condition to follow-up with me in 6 weeks. Plan - Discharge Summary New Discharge Prescriptions: New Ibuprofen [Motrin] 800 mg PO Q8H #30 tab No Action Vit No.179/Iron/Folic [ Tablet] 1 each PO DAILY 30 Days #30 tab Doxylamine Succinate [Unisom] 25 mg PO Discharge Medication List Vit No.179/Iron/Folic [ Tablet] 1 each PO DAILY 30 Days #30 tab 04/07/22 [Rx] Doxylamine Succinate [Unisom] 25 mg PO 04/12/24 [History] Ibuprofen [Motrin] 800 mg PO Q8H #30 tab 04/13/24 [Rx] Follow up Appointment(s)/Referral(s): Asuncion Palma DO [Doctor of Osteopathic Medicine] - 6 Weeks Discharge Disposition: HOME SELF-CARE
[2024-04-13 16:11] VITALS: BP 100/54; PULSE 65; TEMP 98.1
== END 2024-04-13 17:55 | disposition home or self-care (01) | DRG 807 ==
LOC: 4FBP 06:10
PROVIDERS: ADMIT Obstetrics & Gynecology; ATTEND Obstetrics & Gynecology
PROC: 10E0XZZ Delivery of Products of Conception, External Approach (ICD-10-PCS; principal; 2024-04-12)
PROC: 10907ZC Drainage of Amniotic Fluid, Therapeutic from Products of Conception, Via Natural or Artificial Opening (ICD-10-PCS; 2024-04-12)
PROC: 3E033VJ Introduction of Other Hormone into Peripheral Vein, Percutaneous Approach (ICD-10-PCS; 2024-04-12)
PROC: 0HQ9XZZ Repair Perineum Skin, External Approach (ICD-10-PCS; 2024-04-12)
DX: O62.3 Precipitate labor (principal); Z37.0 Single live birth; Z3A.40 40 weeks gestation of pregnancy; O70.0 First degree perineal laceration during delivery
CPT/HCPCS: 85025; 86850; 86900; 86901